=== PATIENT | female | born 1970 | race Caucasian/White ===

== ENCOUNTER 2017-12-25 16:58 | Observation (INO) ==
[2017-12-25] MEDS ORDERED: ALBUTEROL/IPRATROPIUM 3 ML NEB RESP TX STA (17:39)
[2017-12-25] MEDS ORDERED: ONDANSETRON 4 MG/2 ML VIAL IV STA ×2 (17:39→19:46)
[2017-12-25] MEDS ORDERED: NITROGLYCERIN 2% OINT 1 INCH/GM PACK TOP STA (17:39)
[2017-12-25] MEDS ORDERED: ASPIRIN 325 MG TABLET PO STA (17:39)
[2017-12-25] MEDS ORDERED: methylPREDNISolone SOD SUC 125 MG/2 ML VIAL IV STA (17:39)
[2017-12-25] MEDS ORDERED: FUROSEMIDE 100 MG/10 ML VIAL IV STA (17:39)
[2017-12-25] MEDS ORDERED: ASPIRIN 325 MG TABLET ONE (17:51)
[2017-12-25 17:52] LABS: INR 1.1; PT Patient Result 11.4 SECS
[2017-12-25] MEDS ORDERED: NITROGLYCERIN 2% OINT 1 INCH/GM PACK TOP ONE (17:55)
[2017-12-25] MEDS ORDERED: FUROSEMIDE 100 MG/10 ML VIAL ONE (17:55)
[2017-12-25] MEDS ORDERED: ONDANSETRON 4 MG/2 ML VIAL ONE ×2 (17:56→19:47)
[2017-12-25] MEDS ORDERED: methylPREDNISolone SOD SUC 125 MG/2 ML VIAL ONE (17:56)
[2017-12-25 18:14] LABS: Alanine Aminotransferase 13 U/L (13-56); Albumin 3.3 G/DL (3.4-5.0); Alkaline Phosphatase 125 U/L (45-117); Aspartate Amino Transferase 16 U/L (0-37); Blood Urea Nitrogen 5 MG/DL (7-18); Calcium 8.7 MG/DL (8.5-10.1); Glucose 80 MG/DL (74-106); Osmolality,Calculated 272.5 MOS/KG (273-304); Potassium 4.1 MMOL/L (3.5-5.1); Sodium 139 MMOL/L (136-145); Troponin I Only < 0.015 NG/ML (0.00-0.045)
[2017-12-25 18:17] LABS: Basophils # 0.1 10*3/uL (0.0-0.2); Basophils % 0.5 % (0.0-0.8); Eosinophils # 0.4 10*3/uL (0.0-0.87); Eosinophils % 3.7 % (0.00-10.9); Hematocrit 39.5 VOL% (35.7-47.0); Hemoglobin 12.9 GM/DL (12.0-16.0); Immature Granulocytes % 0.3 %; Immature Granulocytes Absolute 0.03 #; Lymphocytes % 26.9 % (21.3-54.2); Mean Corpuscular HGB Conc 32.7 GM/DL (32-36); Mean Corpuscular Hemoglobin 29 PG (27-34); Mean Corpuscular Volume 89.8 FL (87-102); Mean Platelet Volume 9.7 FL (9.6-12.0); Monocytes # 0.6 10*3/uL (0.11-0.8); Monocytes % 5.7 % (1.7-12.7); Neutrophils # 7.1 10*3/uL (1.4-7.4); Neutrophils % 62.9 % (38.7-73.9); Platelet Count 281 T/CUMM (130-400); Red Cell Distribution Width 13.5 % (9.3-17.3); White Blood Count 11.3 T/CUMM (4-12)
[2017-12-25 18:54] LABS: Apearance,Urine CLEAR (Clear); Bacteria,Urine Occasional /HPF (Few); Bilirubin,Urine Negative (Negative); Blood, Urine Small mg/dL (Negative); Glucose,Urine (UA) Negative (Negative); Ketones,Urine Negative (Negative); Nitrite,Urine Negative (Negative); Protein,Urine Negative; RBC,Urine <1 /HPF (0-4); Squamous Epithelial Cell,Urine Occasional /HPF (0-10); Urine Color Colorless (Yellow); Urine Specific Gravity 1.002 (1.001-1.035); Urine Urobilinogen < 2.0 EU/DL (0.2-1.0); WBC,Urine <1 /HPF (0-6)
[2017-12-25 18:58] LABS: Barbiturates Screen,Urine Negative (Negative); Benzodiazepines Screen,Urine Negative (Negative); Cannabinoid Screen,Urine Negative (Negative); Opiate Screen,Urine Negative (Negative); Phencyclidine Screen,Urine Negative (Negative)
[2017-12-25] MEDS ORDERED: MORPHINE 2 MG/1 ML SYRINGE IV STA (19:55)
[2017-12-25] MEDS ORDERED: MORPHINE 2 MG/1 ML SYRINGE ONE (19:59)
[2017-12-25] MEDS ORDERED: ENOXAPARIN 40 MG/0.4 ML SYRINGE SUBCUT SCH (21:43)
[2017-12-25] MEDS: CARVEDILOL 6.25 MG TABLET PO SCH (21:52)
[2017-12-25] MEDS: DICYCLOMINE 20 MG TABLET PO SCH (21:52)
[2017-12-25] MEDS: CITALOPRAM 20 MG TABLET PO SCH (21:52)
[2017-12-25] MEDS: LOSARTAN 50 MG TABLET PO SCH (21:52)
[2017-12-25] MEDS: ONDANSETRON 4 MG/2 ML VIAL IV PRN (21:57)
[2017-12-25] MEDS: traMADol 50 MG TABLET PO PRN (21:58)
[2017-12-25 23:45] LABS: Thyroid Stimulating Hormone 1.06 uIU/ml (0.358-3.74)
[2017-12-26] MEDS: ONDANSETRON 4 MG/2 ML VIAL IV PRN ×3 (04:43→18:46)
[2017-12-26] MEDS: LEVOTHYROXINE 125 MCG TABLET PO SCH ×2 (06:24→12:33)
[2017-12-26] MEDS: traMADol 50 MG TABLET PO PRN (08:54)
[2017-12-26] MEDS ORDERED: PROMETHAZINE 25 MG/1 ML VIAL IM ONE (09:22)
[2017-12-26] MEDS: LOSARTAN 50 MG TABLET PO SCH (12:28)
[2017-12-26] MEDS: PANTOPRAZOLE 40 MG TABLET PO SCH (12:28)
[2017-12-26] MEDS: CARVEDILOL 6.25 MG TABLET PO SCH ×2 (12:28→17:01)
[2017-12-26] MEDS: DICYCLOMINE 20 MG TABLET PO SCH ×4 (12:28→21:27)
[2017-12-26] MEDS: ASPIRIN 325 MG TABLET PO SCH (12:28)
[2017-12-26] MEDS: MORPHINE 2 MG/1 ML SYRINGE IV PRN (18:47)
[2017-12-26] MEDS: CITALOPRAM 20 MG TABLET PO SCH (21:27)
[2017-12-27 05:45] LABS: Basophils % 0.2 % (0.0-0.8); Eosinophils # 0.2 10*3/uL (0.0-0.87); Eosinophils % 1.8 % (0.00-10.9); Hematocrit 36.2 VOL% (35.7-47.0); Hemoglobin 12.3 GM/DL (12.0-16.0); Immature Granulocytes % 0.4 %; Immature Granulocytes Absolute 0.05 #; Lymphocytes # 3.3 10*3/uL (1.4-4.0); Lymphocytes % 25.9 % (21.3-54.2); Mean Corpuscular Hemoglobin 30 PG (27-34); Mean Corpuscular Volume 88.5 FL (87-102); Monocytes # 0.7 10*3/uL (0.11-0.8); Monocytes % 5.6 % (1.7-12.7); Neutrophils # 8.3 10*3/uL (1.4-7.4); Neutrophils % 66.1 % (38.7-73.9); Platelet Count 293 T/CUMM (130-400); Red Blood Count 4.09 MC/CUMM (3.8-5.5); Red Cell Distribution Width 13.8 % (9.3-17.3); White Blood Count 12.6 T/CUMM (4-12)
[2017-12-27] MEDS: LEVOTHYROXINE 125 MCG TABLET PO SCH ×2 (06:02→14:52)
[2017-12-27 06:17] LABS: Calcium 8.6 MG/DL (8.5-10.1); Osmolality,Calculated 277.5 MOS/KG (273-304); Potassium 4.2 MMOL/L (3.5-5.1)
[2017-12-27] MEDS ORDERED: PROPOFOL 200 MG/20 ML VIAL IV ONE (13:45)
[2017-12-27] MEDS ORDERED: LIDOCAINE 2% 5 ML VIAL ONE (13:45)
[2017-12-27] MEDS: ONDANSETRON 4 MG/2 ML VIAL IV PRN ×2 (14:49→20:40)
[2017-12-27] MEDS: DICYCLOMINE 20 MG TABLET PO SCH ×4 (14:50→22:28)
[2017-12-27] MEDS: LOSARTAN 50 MG TABLET PO SCH (14:50)
[2017-12-27] MEDS: CARVEDILOL 6.25 MG TABLET PO SCH ×2 (14:50→18:34)
[2017-12-27] MEDS: PANTOPRAZOLE 40 MG TABLET PO SCH (14:50)
[2017-12-27] MEDS: ASPIRIN 325 MG TABLET PO SCH (14:50)
[2017-12-27] MEDS ORDERED: MAGNESIUM HYDROXIDE SUSP 30 ML UDCUP PO PRN (18:24)
[2017-12-27] MEDS: MORPHINE 2 MG/1 ML SYRINGE IV PRN (20:41)
[2017-12-27] MEDS: CITALOPRAM 20 MG TABLET PO SCH (22:25)
[2017-12-28] MEDS: ONDANSETRON 4 MG/2 ML VIAL IV PRN ×4 (01:46→21:54)
[2017-12-28] MEDS: MORPHINE 2 MG/1 ML SYRINGE IV PRN ×3 (01:47→17:07)
[2017-12-28 05:56] LABS: Basophils % 0.4 % (0.0-0.8); Eosinophils # 0.3 10*3/uL (0.0-0.87); Eosinophils % 2.5 % (0.00-10.9); Hematocrit 37.4 VOL% (35.7-47.0); Hemoglobin 12.6 GM/DL (12.0-16.0); Immature Granulocytes % 0.5 %; Immature Granulocytes Absolute 0.06 #; Lymphocytes % 17.9 % (21.3-54.2); Mean Corpuscular HGB Conc 33.7 GM/DL (32-36); Mean Corpuscular Hemoglobin 30 PG (27-34); Mean Corpuscular Volume 88.4 FL (87-102); Monocytes # 0.8 10*3/uL (0.11-0.8); Monocytes % 7.2 % (1.7-12.7); Neutrophils % 71.5 % (38.7-73.9); Platelet Count 273 T/CUMM (130-400); Red Blood Count 4.23 MC/CUMM (3.8-5.5); Red Cell Distribution Width 13.6 % (9.3-17.3); White Blood Count 11.2 T/CUMM (4-12)
[2017-12-28 06:17] LABS: Calcium 8.5 MG/DL (8.5-10.1); Osmolality,Calculated 274.7 MOS/KG (273-304); Potassium 4.5 MMOL/L (3.5-5.1)
[2017-12-28] MEDS: LEVOTHYROXINE 125 MCG TABLET PO SCH (06:46)
[2017-12-28] MEDS: PANTOPRAZOLE 40 MG TABLET PO SCH (09:17)
[2017-12-28] MEDS: CARVEDILOL 6.25 MG TABLET PO SCH ×2 (09:17→16:51)
[2017-12-28] MEDS: LOSARTAN 50 MG TABLET PO SCH (09:17)
[2017-12-28] MEDS: ASPIRIN 325 MG TABLET PO SCH (09:17)
[2017-12-28] MEDS: DICYCLOMINE 20 MG TABLET PO SCH ×4 (09:17→21:49)
[2017-12-28] MEDS: CITALOPRAM 20 MG TABLET PO SCH (21:49)
[2017-12-28] MEDS: traMADol 50 MG TABLET PO PRN (21:54)
[2017-12-29] MEDS: LEVOTHYROXINE 125 MCG TABLET PO SCH (06:32)
[2017-12-29] MEDS: LOSARTAN 50 MG TABLET PO SCH (09:07)
[2017-12-29] MEDS: ASPIRIN 325 MG TABLET PO SCH (09:12)
[2017-12-29] MEDS: PANTOPRAZOLE 40 MG TABLET PO SCH (09:13)
[2017-12-29] MEDS: CARVEDILOL 6.25 MG TABLET PO SCH (09:13)
[2017-12-29] MEDS: DICYCLOMINE 20 MG TABLET PO SCH (09:13)
[2017-12-29 11:36] VITALS: BP 115/53
== END 2017-12-29 12:40 | disposition home or self-care (01) ==
LOC: N.ED 16:58 → N.EDINP 16:58 → SUATTDRO 19:42 → N.TELEN 20:23
PROVIDERS: ADMIT Internal Medicine; ATTEND Internal Medicine Infectious Disease

== ENCOUNTER 2018-08-03 01:02 | Observation (INO) ==
[2018-08-03] MEDS ORDERED: ONDANSETRON 4 MG/2 ML VIAL IV STA (01:57)
[2018-08-03] MEDS ORDERED: SODIUM CHLORIDE 0.9% 1,000 ML IV STA (01:57)
[2018-08-03 02:30] LABS: Basophils # 0.1 10*3/uL (0.0-0.2); Basophils % 0.5 % (0.0-0.8); Eosinophils # 0.3 10*3/uL (0.0-0.87); Eosinophils % 2.8 % (0.00-10.9); Hematocrit 37.4 VOL% (35.7-47.0); Hemoglobin 12.8 GM/DL (12.0-16.0); Immature Granulocytes % 0.4 %; Immature Granulocytes Absolute 0.04 #; Lymphocytes # 2.7 10*3/uL (1.4-4.0); Lymphocytes % 25.4 % (21.3-54.2); Mean Corpuscular HGB Conc 34.2 GM/DL (32-36); Mean Corpuscular Hemoglobin 31 PG (27-34); Mean Corpuscular Volume 89.3 FL (87-102); Mean Platelet Volume 10.1 FL (9.6-12.0); Monocytes # 0.6 10*3/uL (0.11-0.8); Monocytes % 5.9 % (1.7-12.7); Neutrophils # 6.9 10*3/uL (1.4-7.4); Platelet Count 260 T/CUMM (130-400); Red Blood Count 4.19 MC/CUMM (3.8-5.5); Red Cell Distribution Width 13.1 % (9.3-17.3); White Blood Count 10.6 T/CUMM (4-12)
[2018-08-03 02:44] LABS: Apearance,Urine CLEAR (Clear); Bilirubin,Urine Negative (Negative); Blood, Urine Small mg/dL (Negative); Glucose,Urine (UA) Negative (Negative); Ketones,Urine Negative (Negative); Mucus,Urine Occasional /LPF (Occasional); Nitrite,Urine Negative (Negative); Protein,Urine Negative; RBC,Urine 1 /HPF (0-4); Squamous Epithelial Cell,Urine Occasional /HPF (0-10); Urine Color Straw (Yellow); Urine Specific Gravity 1.005 (1.001-1.035); Urine Urobilinogen < 2.0 EU/DL (0.2-1.0); WBC,Urine <1 /HPF (0-6)
[2018-08-03 02:52] LABS: Alanine Aminotransferase 16 U/L (13-56); Albumin 3.6 G/DL (3.4-5.0); Alkaline Phosphatase 122 U/L (45-117); Aspartate Amino Transferase 14 U/L (0-37); Bilirubin,Total < 0.39 MG/DL (0.2-1.0); Blood Urea Nitrogen 5 MG/DL (7-18); Calcium 8.7 MG/DL (8.5-10.1); Glucose 92 MG/DL (74-106); Osmolality,Calculated 277.3 MOS/KG (273-304); Potassium 3.6 MMOL/L (3.5-5.1); Sodium 141 MMOL/L (136-145); Total Protein 7.6 G/DL (6.4-8.3)
[2018-08-03 02:53] LABS: Lactic Acid 1.6 MMOL/L (0.4-2.0)
[2018-08-03] MEDS ORDERED: fentaNYL 100 MCG/2 ML VIAL ONE (03:16)
[2018-08-03] MEDS ORDERED: fentaNYL 100 MCG/2 ML VIAL IV STA (03:19)
[2018-08-03] MEDS ORDERED: MEPERIDINE 50 MG/1 ML VIAL IV PRN (03:27)
[2018-08-03] MEDS: SODIUM CHLORIDE 0.9% 1,000 ML IV SCH ×4 (04:55→21:18)
[2018-08-03] MEDS: ONDANSETRON 4 MG/2 ML VIAL IV PRN ×3 (06:20→17:40)
[2018-08-03] MEDS ORDERED: MORPHINE 4 MG/1 ML VIAL IV PRN ×2 (06:43→16:51)
[2018-08-03] MEDS ORDERED: PANTOPRAZOLE 40 MG VIAL IV ONE (08:01)
[2018-08-03] MEDS ORDERED: PANTOPRAZOLE 40 MG TABLET PO SCH (09:00)
[2018-08-03] MEDS: MORPHINE 4 MG/1 ML VIAL IV PRN (19:18)
[2018-08-03] MEDS ORDERED: HYOSCYAMINE 0.125 MG TABLET PO PRN (20:43)
[2018-08-03] MEDS: PANTOPRAZOLE 40 MG VIAL IV SCH (21:15)
[2018-08-04] MEDS: SODIUM CHLORIDE 0.9% 1,000 ML IV SCH ×4 (04:47→22:41)
[2018-08-04] MEDS: MORPHINE 4 MG/1 ML VIAL IV PRN (06:00)
[2018-08-04] MEDS: LEVOTHYROXINE 100 MCG VIAL IV SCH (06:41)
[2018-08-04] MEDS ORDERED: PROPOFOL 200 MG/20 ML VIAL IV ONE (09:14)
[2018-08-04] MEDS ORDERED: ONDANSETRON 4 MG/2 ML VIAL ONE (09:14)
[2018-08-04] MEDS: PANTOPRAZOLE 40 MG VIAL IV SCH ×2 (09:21→20:37)
[2018-08-04] MEDS ORDERED: hydrALAZINE 20 MG/1 ML VIAL ONE (09:27)
[2018-08-04] MEDS ORDERED: CYCLOBENZAPRINE 10 MG TABLET PO PRN (09:34)
[2018-08-04] MEDS: traMADol 50 MG TABLET PO PRN ×3 (10:28→23:44)
[2018-08-04] MEDS: PROMETHAZINE 25 MG/1 ML VIAL IM PRN ×2 (10:28→18:17)
[2018-08-04] MEDS: GABAPENTIN 300 MG CAPSULE PO SCH ×2 (15:24→20:37)
[2018-08-04] MEDS: CARVEDILOL 6.25 MG TABLET PO SCH (20:37)
[2018-08-04] MEDS ORDERED: HydrOXYzine PAMOATE 50 MG CAPSULE PO SCH (21:00)
[2018-08-04] MEDS: ONDANSETRON 4 MG/2 ML VIAL IV PRN (22:41)
[2018-08-05] MEDS: LEVOTHYROXINE 100 MCG VIAL IV SCH (06:02)
[2018-08-05] MEDS: SODIUM CHLORIDE 0.9% 1,000 ML IV SCH (06:04)
[2018-08-05] MEDS ORDERED: LOSARTAN 50 MG TABLET PO SCH (09:00)
[2018-08-05] MEDS ORDERED: FAMOTIDINE 20 MG TABLET PO SCH (09:00)
[2018-08-05] MEDS: PANTOPRAZOLE 40 MG VIAL IV SCH (10:02)
[2018-08-05] MEDS: CARVEDILOL 6.25 MG TABLET PO SCH (10:02)
[2018-08-05] MEDS: GABAPENTIN 300 MG CAPSULE PO SCH ×2 (10:03→15:00)
[2018-08-05 21:05] VITALS: BP 143/104
== END 2018-08-05 20:35 | disposition home or self-care (01) ==
LOC: N.ED 01:02 → N.EDINP 03:27 → INTOOBSV 03:27 → N.3E 04:14
PROVIDERS: ADMIT Internal Medicine; ATTEND Internal Medicine

== ENCOUNTER 2019-08-26 11:41 | Observation (INO) ==
[2019-08-26] MEDS ORDERED: HYDROmorphone 2 MG/1 ML VIAL IV STA (12:01)
[2019-08-26] MEDS ORDERED: PANTOPRAZOLE 40 MG VIAL IV STA (12:01)
[2019-08-26] MEDS ORDERED: ONDANSETRON 4 MG/2 ML VIAL IV STA (12:01)
[2019-08-26] MEDS ORDERED: SODIUM CHLORIDE 0.9% 500 ML IV STA (12:01)
[2019-08-26 12:27] LABS: Basophils # 0.1 10*3/uL (0.0-0.2); Basophils % 0.4 % (0.0-0.8); Eosinophils # 0.4 10*3/uL (0.0-0.87); Hematocrit 39.1 VOL% (35.7-47.0); Hemoglobin 12.6 GM/DL (12.0-16.0); Immature Granulocytes % 0.7 %; Lymphocytes # 2.1 10*3/uL (1.4-4.0); Lymphocytes % 14.9 % (21.3-54.2); Mean Corpuscular HGB Conc 32.2 GM/DL (32-36); Mean Corpuscular Volume 89.7 FL (87-102); Mean Platelet Volume 9.2 FL (9.6-12.0); Monocytes % 5.6 % (1.7-12.7); Neutrophils % 75.4 % (38.7-73.9); Platelet Count 380 T/CUMM (130-400); Red Blood Count 4.36 MC/CUMM (3.8-5.5); Red Cell Distribution Width 13.7 % (9.3-17.3); White Blood Count 14.3 T/CUMM (4-12)
[2019-08-26 12:45] LABS: Albumin 3.7 G/DL (3.4-5.0); Bilirubin,Total 0.4 MG/DL (0.2-1.0); Calcium 9.4 MG/DL (8.5-10.1); Osmolality,Calculated 275.5 MOS/KG (273-304); Total Protein 7.6 G/DL (6.4-8.3)
[2019-08-26 13:58] LABS: Apearance,Urine CLEAR (Clear); Bilirubin,Urine Negative (Negative); Blood, Urine Negative (Negative); Glucose,Urine (UA) Negative (Negative); Ketones,Urine Negative (Negative); Mucus,Urine Occasional /LPF (Occasional); Nitrite,Urine Negative (Negative); Protein,Urine Negative; RBC,Urine 1 /HPF (0-4); Squamous Epithelial Cell,Urine Occasional /HPF (0-10); Urine Color Colorless (Yellow); Urine Specific Gravity 1.025 (1.001-1.035); Urine Urobilinogen < 2.0 EU/DL (0.2-1.0)
[2019-08-26] MEDS ORDERED: ONDANSETRON 4 MG/2 ML VIAL IV PRN (14:54)
[2019-08-26] MEDS ORDERED: PROMETHAZINE 25 MG/1 ML VIAL IM PRN (14:54)
[2019-08-26] MEDS ORDERED: KETOROLAC 15 MG/1 ML VIAL IV PRN (14:54)
[2019-08-26] MEDS ORDERED: ENOXAPARIN 40 MG/0.4 ML SYRINGE SUBCUT SCH (15:00)
[2019-08-26] MEDS: SODIUM CHLORIDE 0.9% 1,000 ML IV SCH (15:05)
[2019-08-26] MEDS ORDERED: AZITHROMYCIN INJ 500 MG in SODIUM CHLORIDE 0.9% 250 ML IV ONE (15:13)
[2019-08-26] MEDS ORDERED: hydrALAZINE 20 MG/1 ML VIAL IV PRN (15:18)
[2019-08-26] MEDS ORDERED: MORPHINE 4 MG/1 ML VIAL IV ONE (17:58)
[2019-08-27] MEDS: SODIUM CHLORIDE 0.9% 1,000 ML IV SCH (00:40)
[2019-08-27 05:33] LABS: Basophils % 0.5 % (0.0-0.8); Eosinophils # 0.4 10*3/uL (0.0-0.87); Eosinophils % 5.9 % (0.00-10.9); Hematocrit 34.7 VOL% (35.7-47.0); Hemoglobin 11.3 GM/DL (12.0-16.0); Immature Granulocytes % 0.4 %; Immature Granulocytes Absolute 0.03 #; Lymphocytes # 2.2 10*3/uL (1.4-4.0); Lymphocytes % 29.2 % (21.3-54.2); Mean Corpuscular HGB Conc 32.6 GM/DL (32-36); Mean Corpuscular Volume 90.4 FL (87-102); Mean Platelet Volume 9.6 FL (9.6-12.0); Monocytes % 7.7 % (1.7-12.7); Neutrophils % 56.3 % (38.7-73.9); Platelet Count 286 T/CUMM (130-400); Red Blood Count 3.84 MC/CUMM (3.8-5.5); Red Cell Distribution Width 13.7 % (9.3-17.3); White Blood Count 7.4 T/CUMM (4-12)
[2019-08-27 05:48] LABS: Calcium 8.7 MG/DL (8.5-10.1)
[2019-08-27] MEDS ORDERED: LEVOTHYROXINE 125 MCG TABLET PO SCH (07:00)
[2019-08-27 08:07] VITALS: BP 132/67
[2019-08-27] MEDS ORDERED: PANTOPRAZOLE 40 MG VIAL IV SCH (09:00)
== END 2019-08-27 10:57 | disposition home or self-care (01) ==
LOC: N.EDINP 11:41 → N.ED 11:41 → N.2W 15:54
PROVIDERS: ADMIT Emergency Medicine; ATTEND Emergency Medicine

== ENCOUNTER 2021-03-07 15:28 | Observation (INO) ==
[2021-03-07] MEDS ORDERED: SODIUM CHLORIDE 0.9% 1,000 ML IV STA ×2 (16:25→21:13)
[2021-03-07 17:04] LABS: Basophils % 0.3 % (0.0-0.8); Eosinophils # 0.5 10*3/uL (0.0-0.87); Eosinophils % 3.9 % (0.00-10.9); Hematocrit 38.9 VOL% (35.7-47.0); Hemoglobin 12.2 GM/DL (12.0-16.0); Immature Granulocytes % 0.5 %; Immature Granulocytes Absolute 0.06 #; Lymphocytes # 2.7 10*3/uL (1.4-4.0); Mean Corpuscular HGB Conc 31.4 GM/DL (32-36); Mean Platelet Volume 10.2 FL (9.6-12.0); Monocytes % 6.7 % (1.7-12.7); Neutrophils % 67.6 % (38.7-73.9); Platelet Count 308 T/CUMM (130-400); Red Blood Count 4.42 MC/CUMM (3.8-5.5); Red Cell Distribution Width 14.1 % (9.3-17.3); White Blood Count 12.7 T/CUMM (4-12)
[2021-03-07 17:23] LABS: Alanine Aminotransferase 15 U/L (13-56); Alkaline Phosphatase 126 U/L (45-117); Aspartate Amino Transferase 15 U/L (0-37); Bilirubin,Total < 0.39 MG/DL (0.2-1.0); Blood Urea Nitrogen 5 MG/DL (7-18); Calcium 8.9 MG/DL (8.5-10.1); Carbon Dioxide 27 MMOL/L (21-32); Estimated Glom Filtration Rate 103 ML/MIN; Glucose 93 MG/DL (74-106); Osmolality,Calculated 277.3 MOS/KG (273-304); Potassium 3.4 MMOL/L (3.5-5.1); Sodium 141 MMOL/L (136-145); Total Protein 7.3 G/DL (6.4-8.2)
[2021-03-07] MEDS ORDERED: POTASSIUM CHLORIDE 20 MEQ TABLET PO PRN (17:32)
[2021-03-07] MEDS ORDERED: POTASSIUM CHLORIDE 20 MEQ TABLET PO STA (17:33)
[2021-03-07 17:46] LABS: Bilirubin,Urine Negative (Negative); Blood, Urine Negative (Negative); Glucose,Urine (UA) Negative (Negative); Hyaline Casts,Urine 1 /LPF (0-3); Ketones,Urine Negative (Negative); Mucus,Urine Occasional /LPF (Occasional); Nitrite,Urine Negative (Negative); Protein,Urine Negative; RBC,Urine <1 /HPF (0-4); Squamous Epithelial Cell,Urine Occasional /HPF (0-10); Urine Appearance CLEAR (Clear); Urine Color Yellow (Yellow); Urine Specific Gravity 1.011 (1.001-1.035); Urine Urobilinogen < 2.0 EU/DL (0.2-1.0)
[2021-03-07] MEDS ORDERED: MORPHINE 4 MG/1 ML VIAL IM STA (18:46)
[2021-03-07] MEDS ORDERED: PROMETHAZINE 25 MG/1 ML VIAL IM STA (18:48)
[2021-03-07] MEDS ORDERED: ONDANSETRON 4 MG/2 ML VIAL ONE (20:57)
[2021-03-07] MEDS ORDERED: PANTOPRAZOLE 40 MG VIAL IV ONE (20:57)
[2021-03-07] MEDS ORDERED: METOCLOPRAMIDE 10 MG/2 ML VIAL ONE (20:57)
[2021-03-07] MEDS ORDERED: HYDROmorphone 2 MG/1 ML VIAL ONE (20:57)
[2021-03-07] MEDS ORDERED: PANTOPRAZOLE 40 MG VIAL IV STA (21:05)
[2021-03-07] MEDS ORDERED: METOCLOPRAMIDE 10 MG/2 ML VIAL IV STA (21:06)
[2021-03-07] MEDS ORDERED: HYDROmorphone 2 MG/1 ML VIAL IV STA (21:06)
[2021-03-07] MEDS ORDERED: ONDANSETRON 4 MG/2 ML VIAL IV STA (21:06)
[2021-03-07 22:35] LABS: Barbiturates Screen,Urine Negative (Negative); Benzodiazepines Screen,Urine Negative (Negative); Cannabinoid Screen,Urine Negative (Negative); Opiate Screen,Urine Negative (Negative); Phencyclidine Screen,Urine Negative (Negative)
[2021-03-07] MEDS ORDERED: traZODone 50 MG TABLET PO PRN (22:45)
[2021-03-07] MEDS ORDERED: PROMETHAZINE 25 MG/1 ML VIAL IM PRN (22:45)
[2021-03-07] MEDS ORDERED: DEXTROSE 50% 25 GM/50 ML VIAL IV PRN (22:45)
[2021-03-07] MEDS ORDERED: ALUMINUM/MAGNES/SIMETH MAX STR 30 ML UDCUP PO PRN (22:45)
[2021-03-07] MEDS ORDERED: hydrALAZINE 20 MG/1 ML VIAL IV PRN (22:45)
[2021-03-07] MEDS ORDERED: NICOTINE 21 MG/24 HR PATCH TRANSDERM PRN (22:45)
[2021-03-07] MEDS ORDERED: diphenhydrAMINE CAP 25 MG CAPSULE PO PRN (22:45)
[2021-03-07] MEDS ORDERED: GLUCAGON 1 MG VIAL IM PRN (22:45)
[2021-03-07] MEDS ORDERED: ONDANSETRON 4 MG/2 ML VIAL IV PRN (22:45)
[2021-03-07] MEDS ORDERED: SODIUM CHLORIDE 0.9% 1,000 ML IV SCH (23:00)
[2021-03-08 03:57] LABS: Calcium 8.1 MG/DL (8.5-10.1); Osmolality,Calculated 282.8 MOS/KG (273-304); Potassium 3.7 MMOL/L (3.5-5.1)
[2021-03-08 08:21] LABS: Basophils % 0.3 % (0.0-0.8); Eosinophils # 0.3 10*3/uL (0.0-0.87); Eosinophils % 3.6 % (0.00-10.9); Hematocrit 37.3 VOL% (35.7-47.0); Hemoglobin 11.8 GM/DL (12.0-16.0); Immature Granulocytes % 0.3 %; Immature Granulocytes Absolute 0.03 #; Lymphocytes # 1.6 10*3/uL (1.4-4.0); Lymphocytes % 16.4 % (21.3-54.2); Mean Corpuscular HGB Conc 31.6 GM/DL (32-36); Mean Corpuscular Volume 87.4 FL (87-102); Monocytes % 6.7 % (1.7-12.7); Neutrophils % 72.7 % (38.7-73.9); Platelet Count 244 T/CUMM (130-400); Red Blood Count 4.27 MC/CUMM (3.8-5.5); Red Cell Distribution Width 14.1 % (9.3-17.3); White Blood Count 9.4 T/CUMM (4-12)
[2021-03-08] MEDS ORDERED: DICYCLOMINE 20 MG TABLET PO SCH (12:30)
[2021-03-08 17:48] VITALS: BP 114/69
== END 2021-03-08 13:00 | disposition home or self-care (01) ==
LOC: N.ED 15:28 → N.EDINP 15:28
PROVIDERS: ADMIT Internal Medicine; ATTEND Internal Medicine